=== PATIENT | male | born 2000 | race Caucasian/White ===

== ENCOUNTER 2022-03-29 13:46 | Emergency (ER) | payer BC ==
[~2022-03-29] VITALS: Wt 95.3 kg
[2022-03-29] MEDS ORDERED: TYLENOL325 M1 PO (16:11)
[2022-03-29] MEDS ORDERED: NAPROXEN250 MG PO (16:11)
== END 2022-03-29 15:52 | disposition home or self-care (01) ==
LOC: ED 13:46
DX: S82.891A Other fracture of right lower leg, initial encounter for closed fracture (principal); Z88.0 Allergy status to penicillin; W17.2XXA Fall into hole, initial encounter; Y93.89 Activity, other specified; Y92.89 Other specified places as the place of occurrence of the external cause; Y99.8 Other external cause status